=== PATIENT | male | born 1945 | race Caucasian/White ===

== ENCOUNTER → 2025-03-19 22:55 | Outpatient (BNV) | payer MEDICARE, OTHER, SELFPAY | PROVIDERS: Emergency Provider Student in an Organized Health Care Education/Training Program; Visit Provider Student in an Organized Health Care Education/Training Program | DX: R41.82 Altered mental status, unspecified (principal); R47.01 Aphasia; I51.7 Cardiomegaly | CPT/HCPCS: 70450; 70496; 70498; 71045 ==

== ENCOUNTER → 2025-03-19 22:56 | Outpatient (BNV) | payer MEDICARE, OTHER, SELFPAY | PROVIDERS: Admitting Provider Family Medicine; Emergency Provider Student in an Organized Health Care Education/Training Program; Visit Provider Internal Medicine | DX: I48.92 Unspecified atrial flutter (principal); I45.2 Bifascicular block | CPT/HCPCS: 93010 ==